=== PATIENT | male | born 2000 | race Caucasian/White ===

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

== ENCOUNTER 2022-08-09 18:59 | Inpatient (IN) | payer OTHER, MEDICAID ==
[~2022-08-09] VITALS: Ht 177.8 cm; Wt 79.0 kg
[2022-08-09] MEDS ORDERED: MAGNESIUM 2 G PREMIX 50 ML IV ONE (20:00)
[2022-08-09] MEDS ORDERED: ONDANSETRON HCL 4MG/2ML INJ IV ONE (20:00)
[2022-08-09 20:08] LABS: CHLORIDE 99 mEq/L (98-107)
[2022-08-09 20:09] LABS: BASOPHILS % 0.2 % (0.0-2.0); EOSINOPHILS % 0.4 % (0.0-5.0); HEMATOCRIT. 45.4 % (42.0-52.0); HEMOGLOBIN. 15.6 g/dL (14.0-18.0); LYMPHOCYTES % 13.5 % (20.0-50.0); MEAN CORPUSCULAR HEMOGLOBIN 29.4 pg (28.0-32.0); MEAN CORPUSCULAR VOLUME 85.8 fL (80.0-94.0); MEAN PLATELET VOLUME 8.3 fl (7.4-10.4); MONOCYTES % 1.6 % (2.0-8.0); NEUTROPHILS % 84.3 % (40.0-76.0); PLATELET 314 x1000/uL (130-400); RED BLOOD CELL COUNT 5.29 mill/uL (4.7-6.1); RED CELL DISTRIBUTION WIDTH 13.4 % (11.6-14.6)
[2022-08-10] MEDS ORDERED: ACETAMINOPHEN 325MG TABLET PO PRN (08:15)
[2022-08-10] MEDS ORDERED: ONDANSETRON HCL 4MG/2ML INJ IV PRN (08:15)
[2022-08-10 10:47] VITALS: BP 134/7
== END 2022-08-10 11:15 | disposition left against medical advice (07) | DRG 917 ==
LOC: ER 18:59 → MICUSO 23:16
PROVIDERS: ADMIT Internal Medicine; ATTEND Internal Medicine
PROC: 5A09357 Assistance with Respiratory Ventilation, Less than 24 Consecutive Hours, Continuous Positive Airway Pressure (ICD-10-PCS; principal; 2022-08-09)
DX: T40.691A Poisoning by other narcotics, accidental (unintentional), initial encounter (principal); G92.8 Other toxic encephalopathy; J96.01 Acute respiratory failure with hypoxia; N17.0 Acute kidney failure with tubular necrosis; J45.909 Unspecified asthma, uncomplicated; D72.829 Elevated white blood cell count, unspecified; R74.01 Elevation of levels of liver transaminase levels; Y92.89 Other specified places as the place of occurrence of the external cause; Z88.0 Allergy status to penicillin
CPT/HCPCS: 36415; 71045; 80053; 82962; 85025; 93005; 94660; 99291; J2405; J3475

== ENCOUNTER 2022-09-23 23:31 | Emergency (ER) | payer MEDICAID, OTHER ==
[~2022-09-23] VITALS: Ht 182.9 cm; Wt 105.0 kg
[2022-09-24 01:03] LABS: BASOPHILS % 0.1 % (0.0-2.0); EOSINOPHILS % 0.4 % (0.0-5.0); HEMATOCRIT. 42.6 % (42.0-52.0); HEMOGLOBIN. 14.2 g/dL (14.0-18.0); LYMPHOCYTES % 9.1 % (20.0-50.0); MEAN CORPUSCULAR HEMOGLOBIN 29.5 pg (28.0-32.0); MEAN CORPUSCULAR VOLUME 88.2 fL (80.0-94.0); NEUTROPHILS % 85.4 % (40.0-76.0); PLATELET 269 x1000/uL (130-400); RED BLOOD CELL COUNT 4.83 mill/uL (4.7-6.1); RED CELL DISTRIBUTION WIDTH 14.2 % (11.6-14.6)
[2022-09-24 02:10] LABS: CHLORIDE 109 mEq/L (98-107)
[2022-09-24 02:33] LABS: ETHANOL BLOOD < 10 mg/dL
[2022-09-24] MEDS ORDERED: NALO4SPR BOTHNSTRLS (03:05)
[2022-09-24 03:08] VITALS: BP 111/61
== END 2022-09-24 03:10 | disposition home or self-care (01) ==
LOC: ER 23:31
DX: F11.10 Opioid abuse, uncomplicated (principal); R74.8 Abnormal levels of other serum enzymes; Z88.0 Allergy status to penicillin
CPT/HCPCS: 36415; 80053; 80307; 80320; 80329; 85025; 99283; G0480

== ENCOUNTER 2022-10-05 21:33 | Emergency (ER) | payer MEDICAID ==
[~2022-10-05] VITALS: Ht 182.9 cm; Wt 109.0 kg
[~2022-10-05 21:33] MED LIST: NALO4SPR BOTHNSTRLS
[2022-10-05 21:45] VITALS: BP 119/46
[2022-10-05 23:11] LABS: BASOPHILS % 0.5 % (0.0-2.0); EOSINOPHILS % 1.7 % (0.0-5.0); HEMOGLOBIN. 14.2 g/dL (14.0-18.0); MEAN CORPUSCULAR HEMOGLOBIN 29.9 pg (28.0-32.0); MEAN CORPUSCULAR VOLUME 88.2 fL (80.0-94.0); MEAN PLATELET VOLUME 7.8 fl (7.4-10.4); MONOCYTES % 3.4 % (2.0-8.0); NEUTROPHILS % 80.4 % (40.0-76.0); PLATELET 326 x1000/uL (130-400); RED BLOOD CELL COUNT 4.76 mill/uL (4.7-6.1); RED CELL DISTRIBUTION WIDTH 14.3 % (11.6-14.6)
[2022-10-05 23:15] LABS: CHLORIDE 108 mEq/L (98-107)
[2022-10-05 23:20] LABS: PARTIAL THROMBOPLASTIN TIME 29.9 sec (23.4-31.0); PROTHROMBIN TIME 10.5 sec (9.6-11.0)
[2022-10-05 23:24] LABS: ETHANOL BLOOD 265 mg/dL
[2022-10-06] MEDS ORDERED: LIDOCAINE HCL/PF 1% 10 MG/ML 5ML VIAL INFIL ONE (01:30)
[2022-10-06] MEDS ORDERED: TETANUS, DIPHTHERIA, PERTUSSIS VAC/PF 0.5ML (>10YR OLD) IM ONE ×2 (01:45→03:35)
== END 2022-10-06 04:15 | disposition left against medical advice (07) ==
LOC: ER 22:20
DX: F10.129 Alcohol abuse with intoxication, unspecified (principal); S01.91XA Laceration without foreign body of unspecified part of head, initial encounter; R51.9 Headache, unspecified; Z88.0 Allergy status to penicillin; Z98.890 Other specified postprocedural states; X58.XXXA Exposure to other specified factors, initial encounter; Y93.89 Activity, other specified; Y92.89 Other specified places as the place of occurrence of the external cause; Y99.8 Other external cause status; Y90.8 Blood alcohol level of 240 mg/100 ml or more
CPT/HCPCS: 12011; 36415; 70450; 80053; 80320; 85025; 85610; 85730; 86850; 86900; 86901; 90471; 90715; 99284; J3490; G0480

== ENCOUNTER 2022-12-07 06:11 | Emergency (ER) | payer MEDICAID ==
[~2022-12-07] VITALS: Ht 182.9 cm; Wt 109.4 kg
[2022-12-07] MEDS ORDERED: IBUPROFEN 400MG TABLET PO ONE (08:30)
[2022-12-07] MEDS ORDERED: DEXAMETHASONE 10 MG/ML VIAL IV ONE (08:30)
[2022-12-07 08:41] VITALS: BP 117/58
== END 2022-12-07 08:58 | disposition home or self-care (01) ==
LOC: ER 06:11
DX: J03.90 Acute tonsillitis, unspecified (principal); Z88.0 Allergy status to penicillin
CPT/HCPCS: 96374; 99283; J1100

== ENCOUNTER 2022-12-24 00:53 | Emergency (ER) | payer MEDICAID | END 2022-12-24 03:37 | disposition left against medical advice (07) | LOC: ER 00:53 | DX: Z53.21 Procedure and treatment not carried out due to patient leaving prior to being seen by health care provider (principal) ==

== ENCOUNTER 2022-12-24 18:24 | Emergency (ER) | payer MEDICAID | END 2022-12-24 20:41 | disposition left against medical advice (07) | LOC: ER 18:24 | DX: Z53.21 Procedure and treatment not carried out due to patient leaving prior to being seen by health care provider (principal) ==

== ENCOUNTER 2025-04-02 18:17 | Emergency (ER) | payer MEDICAID ==
[~2025-04-02] VITALS: Ht 182.9 cm; Wt 77.1 kg
[2025-04-02 18:18] VITALS: BP 110/74; PULSE 72; RESP 16; TEMP 37.2; O2SAT 100
== END 2025-04-02 20:14 | disposition left against medical advice (07) ==
LOC: ER 18:17
DX: M54.50 Low back pain, unspecified (principal); M25.561 Pain in right knee; Z53.21 Procedure and treatment not carried out due to patient leaving prior to being seen by health care provider

== ENCOUNTER 2025-06-01 21:14 | Emergency (ER) | payer MEDICAID ==
[~2025-06-01] VITALS: Ht 182.9 cm; Wt 77.5 kg
[2025-06-01 21:20] VITALS: BP 130/84; TEMP 37.2; O2SAT 100
[2025-06-01 21:22] VITALS: PULSE 107; RESP 16; O2SAT 99
[2025-06-01] MEDS ORDERED: FLUORESCEIN SODIUM 1MG/STRIP LEFTEYE ONE (23:00)
[2025-06-02] MEDS: ACETAMINOPHEN 500MG TABLET PO ONE (00:02)
== END 2025-06-02 01:26 | disposition home or self-care (01) ==
LOC: ER 21:14
DX: S00.83XA Contusion of other part of head, initial encounter (principal); S09.90XA Unspecified injury of head, initial encounter; J45.909 Unspecified asthma, uncomplicated; Z98.890 Other specified postprocedural states; Z88.0 Allergy status to penicillin; Z79.899 Other long term (current) drug therapy; X58.XXXA Exposure to other specified factors, initial encounter; Y93.89 Activity, other specified; Y92.89 Other specified places as the place of occurrence of the external cause; Y99.8 Other external cause status
CPT/HCPCS: 70486; 99284

== ENCOUNTER 2025-08-23 19:29 | Emergency (ER) | payer MEDICAID ==
[~2025-08-23] VITALS: Ht 182.9 cm; Wt 73.0 kg
[2025-08-23 19:53] VITALS: O2SAT 96
[2025-08-23] MEDS ORDERED: HYDR453.3 TP (22:00)
[2025-08-23] MEDS: DIPHENHYDRAMINE 25MG CAPSULE PO ONE (22:14)
[2025-08-23 22:17] VITALS: BP 129/63; PULSE 66; RESP 18; TEMP 36.7; O2SAT 98
== END 2025-08-23 22:18 | disposition home or self-care (01) ==
LOC: ER 19:29
DX: L50.9 Urticaria, unspecified (principal); Z88.0 Allergy status to penicillin
CPT/HCPCS: 99283; Q0163